=== PATIENT | female | born 1940 | race Caucasian/White ===

== ENCOUNTER 2019-08-22 15:23 | Emergency (ER) | payer MEDICARE ==
[~2019-08-22] VITALS: Ht 162.6 cm; Wt 83.9 kg
[~2019-08-22 15:23] MED LIST: ALBU90OI INH; ASPI325EC PO; BAYER CHEWABLE81 MG PO; Benadryl 50 mg50 MG PO; CEPH500 PO; CODACE30 PO; DOXY100 PO; EXTRA STRENGTH500 MG PO; GABA300 PO; HYDR1TAB94 PO; IBUP600 PO; MELO7.5 PO; METF500C PO; METPRE4DP PO; PRED20 PO; Pepcid20 MG PO; Pyridium200 MG PO; ROXICODONE5 MG PO; Ventolin Soln3 ML INH; Ventolin5 MG/1 ML INH; Zithromax250 MG PO
[2019-08-22] MEDS ORDERED: TRAM50 PO (15:48)
== END 2019-08-22 16:34 | disposition home or self-care (01) ==
LOC: ER 15:23
DX: M25.511 Pain in right shoulder (principal); J45.909 Unspecified asthma, uncomplicated; E11.9 Type 2 diabetes mellitus without complications; Z79.84 Long term (current) use of oral hypoglycemic drugs; Z79.51 Long term (current) use of inhaled steroids; Z79.82 Long term (current) use of aspirin; Z79.899 Other long term (current) drug therapy
CPT/HCPCS: 99283

== ENCOUNTER → 2020-01-26 | Outpatient (CLI) | payer MEDICARE ==
[~2020-01-26] MED LIST changes: +CEFPODOXIME PR200 MG PO; +ELIQUIS5 M3 PO; +FUROSEMIDE20 MG PO; +GABAPENTIN CAP 100; +GLIP2.5ER PO; +LISINOPRIL2.5 MG PO; +METOPROLOL TART25 MG PO; +Potassium Chlo20 ME1 PO; +TRAM50 PO; +Ventolin/Prove6.7 GM INH
== END | disposition home or self-care (01) ==
LOC: LAB SHORT 18:17 → LAB 18:17
DX: R39.9 Unspecified symptoms and signs involving the genitourinary system (principal)
CPT/HCPCS: 87077; 87086; 87186

== ENCOUNTER → 2020-05-12 | Outpatient (CLI) | payer MEDICARE | LOC: LAB 09:50 → LAB SHORT 09:50 | DX: R39.9 Unspecified symptoms and signs involving the genitourinary system (principal) | CPT/HCPCS: 87077; 87086; 87186 ==

== ENCOUNTER → 2020-08-24 | Outpatient (CLI) | payer MEDICARE | END | disposition home or self-care (01) | LOC: LAB SHORT 17:59 | DX: R30.9 Painful micturition, unspecified (principal) | CPT/HCPCS: 87077; 87086; 87186 ==

== ENCOUNTER → 2020-09-21 | Outpatient (CLI) | payer MEDICARE | LOC: LAB 13:10 → LAB SHORT 13:10 | DX: R39.9 Unspecified symptoms and signs involving the genitourinary system (principal) | CPT/HCPCS: 87077; 87086; 87186 ==

== ENCOUNTER → 2020-12-05 | Outpatient (CLI) | payer MEDICARE | END | disposition home or self-care (01) | LOC: LAB SHORT 14:40 → LAB 14:40 | DX: N39.0 Urinary tract infection, site not specified (principal) | CPT/HCPCS: 87077; 87086; 87186 ==

== ENCOUNTER 2023-12-31 20:13 | Inpatient (IN) | payer MEDICARE ==
[~2023-12-31] VITALS: Ht 162.6 cm; Wt 100.6 kg
[~2023-12-31 20:13] MED LIST changes: -GABAPENTIN CAP 100; +Neurontin 100100 MG PO; -Ventolin/Prove6.7 GM INH
[2023-12-31] MEDS ORDERED: Ipratropium/Albuterol SulF 2.5-0.5MG/3 ML Amp INH PRN (20:25)
[2023-12-31 20:40] LABS: BASOPHILS ABSOLUTE AUTO 0.03 K/mm3 (0.00-0.23); BASOPHILS PERCENT AUTO 0 % (0-2); EOSINOPHILS ABSOLUTE AUTO 0.03 K/mm3 (0.00-0.68); EOSINOPHILS PERCENT AUTO 0 % (0-6); Hematocrit 43.3 % (33.0-51.0); IMMATURE GRAN ABSOLUTE AUTO 0.09 K/mm3 (0.00-0.10); IMMATURE GRAN PERCENT AUTO 1 % (0-1); LYMPHOCYTES ABSOLUTE AUTO 2.53 K/mm3 (0.84-5.20); LYMPHOCYTES PERCENT AUTO 30 % (21-46); MONOCYTES ABSOLUTE AUTO 0.64 K/mm3 (0.16-1.47); MONOCYTES PERCENT AUTO 8 % (4-13); Mean Corpuscular HGB 29.1 pg (26.0-34.0); Mean Corpuscular Volume 97 fL (80-100); Mean Platelet Volume 8.8 fL (9.1-12.4); NEUTROPHILS ABSOLUTE AUTO 5.11 K/mm3 (1.96-9.15); NEUTROPHILS PERCENT AUTO 61 % (41-73); NRBC ABSOLUTE 0.02 K/mm3 (0.00-0.02); NRBC Auto 0.2 /100 WBC (0.0-0.2); Platelet Count 299 K/mm3 (150-400); RDW Coefficient Variation 13.6 % (11.7-14.2); RDW Standard Deviation 48.6 fL (35.1-46.3); Red Blood Cell Count 4.46 M/mm3 (3.80-5.20); White Blood Cell Count 8.43 K/mm3 (4.00-11.30)
[2023-12-31] MEDS ORDERED: CefTRIAXone Sodium 1,000 MG in NS 100 ML IV ONE (20:50)
[2023-12-31 20:59] LABS: Albumin, Blood 2.9 g/dL (3.4-5.0); Albumin/Globulin Ratio 0.7 (0.8-1.8); Bilirubin, Total 0.6 mg/dL (0.1-1.0); Calcium, Blood 9.1 mg/dL (8.5-10.1); Creatinine, Blood 0.69 mg/dL (0.40-1.00); Globulin, Blood 4.3 g/dL (2.2-4.0); Potassium, Blood 4.4 mmol/L (3.5-5.5); Total Protein, Blood 7.2 g/dL (6.4-8.2)
[2023-12-31 21:08] LABS: Influenza A, PCR NEGATIVE (NEGATIVE); Influenza B, PCR NEGATIVE (NEGATIVE); Resp Syncytial Virus, PCR NEGATIVE (NEGATIVE)
[2023-12-31] MEDS ORDERED: METF500 PO (21:16)
[2023-12-31 21:20] LABS: SARS-Cov-2 (COVID-19) PCR, MMC POSITIVE (NEGATIVE)
[2023-12-31] MEDS ORDERED: Vancomycin HCL 1,250 MG in NS 250 ML IV ONE (21:35)
[2023-12-31] MEDS ORDERED: Dexamethasone Sod Phos 10 MG/ML 1ML VIAL IV ONE (22:10)
[2023-12-31] MEDS ORDERED: Ondansetron HCl 2 MG / ML 2ML Vial IV PRN (22:25)
[2023-12-31] MEDS ORDERED: Ipratropium/Albuterol SulF 2.5-0.5MG/3 ML Amp INH SCH (22:30)
[2023-12-31] MEDS ORDERED: Remdesivir (EUA) 200 MG in NS 250 ML IV ONE (22:35)
[2023-12-31] MEDS ORDERED: Lactobacil 2-S.Thermo-Bifido 1 1 Cap PO SCH (23:00)
[2023-12-31] MEDS ORDERED: HydrALAZINE HCl 20 MG / ML 1ML Vial IV PRN (23:35)
[2023-12-31] MEDS ORDERED: Azithromycin 500 MG in NS 250 ML IV ONE (23:40)
[2024-01-01] MEDS ORDERED: Insulin Glargine-Yfgn 100 Unit/mL 3 ML SYR SC SCH
[2024-01-01] MEDS ORDERED: NS 250 ML IV PRN (00:25)
[2024-01-01 01:05] VITALS: BP 127/79
[2024-01-01] MEDS ORDERED: Acetaminophen 325 MG TABLET PO PRN (04:10)
--- NOTE | 2024-01-01 06:05 | NUR ---
Shift Summary Pt admitted to this unit from ED for acute respiratory failure related to covid. Pt is normally on RA at home, at the ED she her O2 sat was 82% on RA, she was placed on 6L NC to [facility] above 90%. While up here she had an episode where she was saying she coulden't breath. I sat her up at 45%, put her on 7L, monitored her O2 which never fell below 89, and called RT for a treatment. Her lungs were wheezy upon arrival which rhonchi sounds. After a nebulizer treatment pt stated she was feeling a bit better but had 10/10 pain in her legs. I called the hospitalist who ordered PRN Tylenol, after taking Tylenol pt was fast asleep 1 hour later. She is AOx4, 1 assist to BSC. She has urinary frequency and calls appropriatly when she needs to go. She is on contact precautions for Covid which she tested positive for in the ED.
[2024-01-01] MEDS ORDERED: Insulin Human Lispro 100 Units/ML 3ML Syringe SC SCH (07:30)
[2024-01-01] MEDS ORDERED: MetFORMIN HCl 500 mg PO SCH (08:00)
[2024-01-01 08:59] VITALS: BP 126/70
[2024-01-01] MEDS ORDERED: Enoxaparin 40 MG/0.4 ML SYR SC SCH (09:00)
[2024-01-01] MEDS ORDERED: dexAMETHasone 4 MG TAB PO SCH (09:00)
[2024-01-01] MEDS ORDERED: CefTRIAXone Sodium 1,000 MG in NS 100 ML IV SCH (09:00)
[2024-01-01 15:11] VITALS: BP 128/65
--- NOTE | 2024-01-01 18:06 | NUR ---
SHIFT SUMMARY PT A&OX4, VSS, ON 6L HIGH FLOW O2, AMB W/ 1P ASSIST TO THE BSC, TOLERATING SMALL AMOUNTS OF PO, VOIDING, AND DENIED PAIN. MEPILEX WAS APPLIED TO THE PT'S BUTTOCK PRESSURE ULCER AND THE BLE'S CONT TO PEEL AND WEEP. CALL LIGHT WITHIN REACH AND PT ABLE TO MAKE NEEDS KNOWN.
[2024-01-01 20:19] VITALS: BP 123/76
[2024-01-01] MEDS ORDERED: Remdesivir (EUA) 100 MG in NS 250 ML IV SCH (21:00)
[2024-01-01] MEDS ORDERED: Famotidine 20 MG Tab PO SCH (21:00)
[2024-01-02 02:21] VITALS: BP 120/64
[2024-01-02 04:41] LABS: Base Excess Venous 7.2 mmol/L; Bicarbonate Venous 29.2 mmol/L (24.0-30.0); PCO2 Venous 61.8 mmHg (38-42); pH Blood Venous 7.34 (7.34-7.37)
[2024-01-02 05:10] LABS: BASOPHILS ABSOLUTE AUTO 0.02 K/mm3 (0.00-0.23); BASOPHILS PERCENT AUTO 0 % (0-2); EOSINOPHILS PERCENT AUTO 0 % (0-6); Hematocrit 39.8 % (33.0-51.0); Hemoglobin 11.9 g/dL (11.5-16.0); IMMATURE GRAN PERCENT AUTO 1 % (0-1); LYMPHOCYTES ABSOLUTE AUTO 2.82 K/mm3 (0.84-5.20); LYMPHOCYTES PERCENT AUTO 32 % (21-46); MONOCYTES ABSOLUTE AUTO 0.69 K/mm3 (0.16-1.47); MONOCYTES PERCENT AUTO 8 % (4-13); Mean Corpuscular HGB Conc 29.9 g/dL (31.5-36.5); Mean Corpuscular Volume 97 fL (80-100); Mean Platelet Volume 9.2 fL (9.1-12.4); NEUTROPHILS ABSOLUTE AUTO 5.29 K/mm3 (1.96-9.15); NEUTROPHILS PERCENT AUTO 59 % (41-73); Platelet Count 335 K/mm3 (150-400); RDW Coefficient Variation 13.4 % (11.7-14.2); RDW Standard Deviation 47.3 fL (35.1-46.3); Red Blood Cell Count 4.11 M/mm3 (3.80-5.20); White Blood Cell Count 8.92 K/mm3 (4.00-11.30)
[2024-01-02 05:37] LABS: Bun/Creatinine Ratio 21.6 (12.0-20.0); Calcium, Blood 8.7 mg/dL (8.5-10.1); Creatinine, Blood 0.6 mg/dL (0.40-1.00); Potassium, Blood 4.5 mmol/L (3.5-5.5)
--- NOTE | 2024-01-02 06:30 | NUR ---
SHIFT SUMMARY PATIENT WAS POLITE AND SOCIAL H STAFF. ABLE TO MAKE NEEDS KNOWN, PLACED IV BAND ON ARM TO KEEP FROM OCCULTION. PATIENT APPEARED TO SLEEP THROUGH THE NIGHT. BED ON LOW POSITON, RAILS TIMES 2, CALL LIGHT WITHIN REACH.
[2024-01-02 07:12] VITALS: BP 123/65
[2024-01-02] MEDS ORDERED: Azithromycin 250 MG Tab PO SCH (09:00)
[2024-01-02 15:02] VITALS: BP 128/76
--- NOTE | 2024-01-02 17:49 | NUR ---
SHIFT SUMMARY PT ON 5L HIGH FLOW O2 AND SAT UP IN THE CHAIR FOR APPROX 4 HOURS. PT REPORTED THAT SHE FELT BETTER WHILE SITTING UP IN THE CHAIR. NO OTHER ACUTE CHANGES THIS SHIFT. CALL LIGHT WITHIN REACH AND PT ABLE TO MAKE NEEDS KNOWN.
[2024-01-02 19:40] VITALS: BP 129/109
[2024-01-03 02:57] VITALS: BP 129/69
[2024-01-03 04:54] LABS: Bicarbonate Venous 30.7 mmol/L (24.0-30.0); PCO2 Venous 48.2 mmHg (38-42); pH Blood Venous 7.43 (7.34-7.37)
[2024-01-03 05:36] LABS: Free Thyroxine 1.32 ng/dL (0.70-1.60)
[2024-01-03 05:38] LABS: Bun/Creatinine Ratio 22.3 (12.0-20.0); Calcium, Blood 8.9 mg/dL (8.5-10.1); Creatinine, Blood 0.63 mg/dL (0.40-1.00); Potassium, Blood 4.3 mmol/L (3.5-5.5); Thyroid Stimulating Hormone 1.68 uIU/mL (0.360-4.800)
[2024-01-03 07:26] VITALS: BP 175/73
[2024-01-03 09:58] VITALS: BP 115/60
[2024-01-03] MEDS ORDERED: Ipratropium/Albuterol SulF 2.5-0.5MG/3 ML Amp INH PRN (12:40)
[2024-01-03 15:31] VITALS: BP 131/78
--- NOTE | 2024-01-03 17:39 | NUR ---
SHIFT SUMMARY PT ON 4L HIGH FLOW O2 AND SAT UP IN THE CHAIR FOR MOST OF THE SHIFT. NO OTHER ACUTE CHANGES. CALL LIGHT WITHIN REACH AND PT ABLE TO MAKE NEEDS KNOWN.
[2024-01-03 20:23] VITALS: BP 139/97
[2024-01-04 02:15] VITALS: BP 129/69
--- NOTE | 2024-01-04 04:05 | NUR ---
SHIFT SUMMARY PATIENT HAD NO ACUTE CHANGES. AXOX 4 AND SBA TO BSC. PIV INTACT. IV ABX INFUSED. CBG 175. ON 4L O2 HF AND RA BASELINE. DENIES CHEST PAIN, SOB, AND N/V. VSS/AFEBRILE. WENT FROM CHAIR TO BED AND BACK INTO CHAIR, REPORTS EASIER BREATHING. ABLE TO MAKE NEEDS KNOW. ENHANCED PRECAUTIONS. CALL LIGHT IN REACH. BED IN LOWEST POSITION. WILL CONTINUE TO MONITOR UNTIL DAY SHIFT NURSE ASSUMES CARE.
[2024-01-04 08:31] VITALS: BP 127/65
[2024-01-04 15:03] VITALS: BP 121/74
--- NOTE | 2024-01-04 16:51 | NUR ---
REPORT RECEIVED VERIDFIED, A/O X 3 PT IN GRUMPY MOOD AND DOES NOT WANT TO BE BOTHERED. PT HAS BEEN ASSISTED TO BSC SEVERAL TIMES AND HAS ALWAYS CALLED APPROPRIATLY, PT HAS BEEN ABLE TO MAKE NEEDS KNOWN, NO S/S OF DISTRESS.
[2024-01-04 20:22] VITALS: BP 132/82
--- NOTE | 2024-01-05 04:01 | NUR ---
SHIFT SUMMARY PATIENT HAD NO ACUTE CHANGES. AXOX 4 AND SBA TO BSC. ON 4L O2 NC AND RA BASELINE. DENIES CHEST PAIN, SOB, AND N/V. VSS/AFEBRILE. UP IN CHAIR AT THIS TIME. PIV INTACT. IV ABX INFUSED. CBG 146. CALL LIGHT IN REACH. BED IN LOWEST POSITION. WILL CONTINUE TO MONITOR UNTIL DAY SHIFT NURSE ASSUMES CARE.
[2024-01-05 04:04] VITALS: BP 131/66
[2024-01-05 07:48] VITALS: BP 126/68
[2024-01-05] MEDS ORDERED: Polyethylene Glycol 3350 17 gm PO PRN (11:15)
[2024-01-05] MEDS ORDERED: Docusate Sodium/Senna 1 Tab PO PRN (11:15)
[2024-01-05] MEDS ORDERED: PRED20 PO (14:13)
[2024-01-05 15:23] VITALS: BP 134/68
--- NOTE | 2024-01-05 17:58 | NUR ---
DISCHARGE PT DISCHARGED AFTER PT & NEICE WERE EDUCATED ON NEW MEDICATION, NEW HOME O2, AND FOLLOW UP APPOINTMENT NEEDED. BOTH STATED THEY HAVE NO FURTHER NEED FOR EDUCATION AT [facility] EOF DC. PT IV REMOVED & INTACT. PT HAD MEDIUM BM PRIOR TO DC. RT COMPLETED HOME O2 EVAL. 3L O2 NEEDED AT REST, 6L WITH AMBULATION. PT WHEELED OUT BY AIDE & DRIVEN HOME BY NESALLIE.
== END 2024-01-05 18:00 | disposition home or self-care (01) | DRG 177 ==
LOC: ER 20:13 → MEDS 22:24
PROVIDERS: Emergency Medicine; Internal Medicine; ADMIT Internal Medicine
PROC: XW033E5 Introduction of Remdesivir Anti-infective into Peripheral Vein, Percutaneous Approach, New Technology Group 5 (ICD-10-PCS; principal; 2023-12-31)
PROC: 3E0DX3Z Introduction of Anti-inflammatory into Mouth and Pharynx, External Approach (ICD-10-PCS; 2023-12-31)
DX: U07.1 COVID-19 (principal); J12.82 Pneumonia due to coronavirus disease 2019; J96.01 Acute respiratory failure with hypoxia; J96.02 Acute respiratory failure with hypercapnia; E87.20 Acidosis, unspecified; Z66 Do not resuscitate; E11.9 Type 2 diabetes mellitus without complications; M19.90 Unspecified osteoarthritis, unspecified site; I87.8 Other specified disorders of veins; J45.909 Unspecified asthma, uncomplicated; Z79.01 Long term (current) use of anticoagulants; Z79.899 Other long term (current) drug therapy; Z79.51 Long term (current) use of inhaled steroids; Z98.890 Other specified postprocedural states; Z87.891 Personal history of nicotine dependence; Z90.710 Acquired absence of both cervix and uterus; Z90.89 Acquired absence of other organs; Z79.84 Long term (current) use of oral hypoglycemic drugs
CPT/HCPCS: 0241U; 36415; 71045; 73600; 73620; 80048; 80053; 82803; 82947; 83605; 83880; 84145; 84439; 84443; 84484; 85025; 85379; 87040; 93005; 93010; 94640; 94664; 94760; 94761; 94762; 96365; 99285-25; A9270; J0248; J0456; J0696; J1100; J1650; J1815; J3370; J7050

== ENCOUNTER 2024-01-20 05:00 | Inpatient (IN) | payer OTHER, MEDICARE ==
[~2024-01-20] VITALS: Ht 157.5 cm; Wt 103.5 kg
[2024-01-20] VITALS (52 sets, daily range): BP systolic 73–120; BP diastolic 38–87
[~2024-01-20 05:00] MED LIST changes: +METF500 PO
[2024-01-20] MEDS ORDERED: NS 1,000 ML IV SCH ×4 (05:15→12:00)
[2024-01-20] MEDS ORDERED: Albuterol 2.5 MG/3 ML VIAL INH SCH ×2 (05:20→06:20)
[2024-01-20] MEDS ORDERED: Ipratropium/Albuterol SulF 2.5-0.5MG/3 ML Amp INH ONE ×2 (05:20→06:20)
[2024-01-20] MEDS ORDERED: Azithromycin 500 MG in NS 250 ML IV ONE (06:20)
[2024-01-20] MEDS ORDERED: MethylPREDNISolone Sod Succ 125 MG Vial IV ONE (06:20)
[2024-01-20] MEDS ORDERED: Cefepime HCl 2,000 MG in NS 100 ML IV ONE (06:20)
[2024-01-20 06:22] LABS: Hematocrit 42.2 % (33.0-51.0); Mean Corpuscular HGB 28.9 pg (26.0-34.0); Mean Corpuscular HGB Conc 30.8 g/dL (31.5-36.5); Mean Corpuscular Volume 94 fL (80-100); Mean Platelet Volume 10.2 fL (9.1-12.4); Platelet Count 198 K/mm3 (150-400); RDW Coefficient Variation 13.9 % (11.7-14.2); RDW Standard Deviation 47.6 fL (35.1-46.3); White Blood Cell Count 8.16 K/mm3 (4.00-11.30)
[2024-01-20] MEDS ORDERED: NS 500 ML IV SCH (06:25)
[2024-01-20 06:50] LABS: Albumin, Blood 2.9 g/dL (3.4-5.0); Albumin/Globulin Ratio 0.9 (0.8-1.8); Bilirubin, Total 1.3 mg/dL (0.1-1.0); Bun/Creatinine Ratio 20.3 (12.0-20.0); Calcium, Blood 8.9 mg/dL (8.5-10.1); Creatinine, Blood 1.58 mg/dL (0.40-1.00); Globulin, Blood 3.4 g/dL (2.2-4.0); Potassium, Blood 4.7 mmol/L (3.5-5.5); Total Protein, Blood 6.3 g/dL (6.4-8.2)
[2024-01-20] MEDS ORDERED: Vancomycin HCL 1,500 MG in NS 250 ML IV ONE (06:50)
[2024-01-20 06:51] LABS: BAND PERCENT MAN 24 % (0-8); BASOPHILS PERCENT MAN 0 % (0-2); EOSINOPHILS PERCENT MAN 0 % (0-6); LYMPHOCYTES ABSOLUTE MAN 0.81 K/mm3 (0.84-5.20); LYMPHOCYTES PERCENT MAN 10 % (21-46); METAMYELOCYTE ABSOLUTE MAN 0.32 K/mm3 (0.00-0.00); METAMYELOCYTE PERCENT MAN 4 % (0-0); MONOCYTES PERCENT MAN 5 % (4-13); SEG NEUTROPHILS PERCENT MAN 57 % (41-73); TOTAL CELLS COUNTED 100
[2024-01-20 06:53] LABS: Base Excess Venous 2.8 mmol/L; Bicarbonate Venous 24.1 mmol/L (24.0-30.0); PCO2 Venous 76.2 mmHg (38-42); pH Blood Venous 7.21 (7.34-7.37)
[2024-01-20 07:12] LABS: Influenza A, PCR NEGATIVE (NEGATIVE); Influenza B, PCR NEGATIVE (NEGATIVE); Resp Syncytial Virus, PCR NEGATIVE (NEGATIVE); SARS-Cov-2 (COVID-19) PCR, MMC NEGATIVE (NEGATIVE)
[2024-01-20] MEDS ORDERED: Insulin Regular 100 Unit/ML 1ML Dose IV STA (07:41)
[2024-01-20] MEDS ORDERED: FLU VACC TS2024-25(6MOS UP)/PF 45 MCG/0.5 ML SYRINGE IM ONE (07:45)
[2024-01-20] MEDS ORDERED: Magnesium Hydroxide Conc 10 ML UDC PO PRN (07:50)
[2024-01-20] MEDS ORDERED: Insulin Glargine-Yfgn 100 Unit/mL 3 ML SYR SC SCH ×2 (08:00→21:00)
[2024-01-20 08:09] LABS: pH Blood Venous 7.24 (7.34-7.37)
[2024-01-20 08:10] LABS: Base Excess Venous -3.9 mmol/L; Bicarbonate Venous 20.7 mmol/L (24.0-30.0)
[2024-01-20 08:11] LABS: PO2 Venous 125 mmHg (38-42)
[2024-01-20 08:50] LABS: Source, Urine Straight Cath
[2024-01-20 09:00] LABS: Bilirubin, Urine Neg (Neg); Blood, Urine Neg (Neg); Glucose Qualitative, Urine 4+ (Neg); Ketones, Urine Neg (Neg); Leukocyte Esterase, Urine Neg (Neg); Nitrite, Urine Neg (Neg); Protein, Urine 1+ (Neg); Urobilinogen, Urine 1+ (Normal)
[2024-01-20] MEDS ORDERED: Docusate Sodium 100 MG Cap PO SCH (09:00)
[2024-01-20 09:11] LABS: Appearance, Urine Clear (Clear); Color, Urine Yellow (P-Yellow)
[2024-01-20] MEDS ORDERED: Acetaminophen 650 MG Supp PR PRN (10:05)
[2024-01-20] MEDS ORDERED: Insulin Regular 100 UNIT/ML 10ML Vial IV STA (10:21)
[2024-01-20] MEDS ORDERED: Insulin Human Lispro 100 Units/ML 3ML Syringe SC SCH ×2 (12:00)
[2024-01-20] MEDS ORDERED: CefTRIAXone Sodium 1,000 MG in NS 100 ML IV SCH (12:00)
[2024-01-20] MEDS ORDERED: Sodium Bicarb 8.4% 1 MEQ/ML 50 ML Vial IV STA (12:15)
[2024-01-20 12:43] LABS: pH Blood Arterial 7.21 (7.35-7.45)
[2024-01-20] MEDS ORDERED: Enoxaparin 30 MG/0.3 ML SYR SC SCH (14:00)
[2024-01-20] MEDS ORDERED: Ipratropium/Albuterol SulF 2.5-0.5MG/3 ML Amp INH SCH (15:10)
--- NOTE | 2024-01-20 15:36 | NUR ---
DECISION MAKER PT DOES NOT HAVE AN ADVANCE DIRECTIVE OR POLST, CONFIRMED WITH [facility] AND PT'S PCP. PT WAS ADMITTED TO [facility] ON 12/31/23. 'S H&P ON 12/31/23 STATES PT ELECTED TO BE A DNR AND LISTED HER NIECE NEETA HER HEALTH CARE PROXY. THIS PC RN LEFT A MSG FOR NEETA TO CALL BACK RE: GO.
--- NOTE | 2024-01-20 16:09 | NUR ---
CARE ASSUMPTION PT ARRIVED TO ICU FROM ED VIA ED STRETCHER AT APPROX 0900. PT WAS SLID BY 3 STAFF FROM ED STRETCHER TO ICU BED. PT ALERT, UNABLE TO STATE NAME/. PT STATES, "SIT ME UP!" REPEATEDLY WHEN LAYED DOWN. PT UNABLE TO FOLLOW COMMANDS. FEBRILE, TEMP LOMBARDI READ 102.2. SP02>90% ON BIPAP, 12/8, 35% FI02. BREATHING SHALLOW. TELEMETRY SHOWS SINUS TACH, HR 110'S, BRIEF RUN AT 150'S. PT W/ LOMBARDI CATHETER DRAINING SUNDAR URINE TO GRAVITY, PLACED IN ER. LIQUID INCONTINENT SMALL STOOL UPON ARRIVAL. BED BATH GIVEN. PRESSURE ULCER NOTED ON BOTTOM, SEE PICTURES IN CHART. MEPLEX PLACED. CALL PLACED TO MD BERGER. MD BERGER W/ ORDERS FOR TYLENOL SUPPOSITORY. GIVEN. TEMP CURRENTLY 101.2. CBG ELEVATED, SEE RESULTS. 10U ONE TIME HUMULIN R GIVEN PER EMAR. CHANGED TO HIGH SLIDING SCALE PER MD. CRITICAL LAB NOTIFIED, LACTIC ACID 3.8. CALL PLACED TO MD BERGER. MD BERGER W/ ORDERS FOR 1L NS BOLUS. EDWIN RN IN ROOM TO PLACE POWERGLIDE. PT RESPOSIVENESS DECREASED. ABLE TO AWAKE W/ LOUD VOICE/STERNAL RUB BUT THEN GOES BACK TO SLEEP. BIPAP SETTINGS REQUIRED INCREASE TO 15/8, 85% BY RT. MD BERGER AND MD FARIAS IN ROOM TO ASSESS. MD FARIAS W/ US. SERENA KWOK TO ROOM. UPDATED BY MD FARIAS. SERENA KWOK STATES WANTS PT TO REMAIN DNR PER PT'S WISHES BUT OK WITH PRESSERS IF NEEDED AND PICC IF NEEDED. SERENA SANTACRUZ UPDATED WELL VIA PHONE. PALLIATIVE CARE CONSULT PLACED. [phone] [phone]
--- NOTE | 2024-01-20 17:38 | NUR ---
update PT MORE ALERT. PT STATES, "TAKE THIS THING OFF ME" REGARDING BIPAP. MD FARIAS IN ROOM. MD FARIAS W/ ORDERS FOR VBG THEN REMOVE BIPAP. VBG SENT TO LAB. PT PLACED ON 10L HIFLO SATTING >90%. PT C/O OF RLL PAIN. PT C/O OF THIRST. ORAL CARE DONE. LET PT KNOW SUNDAR STOPPED BY AND I SPOKE WITH NEETA ON PHONE. ASKED PT IF SHE WOULD LIKE ME TO UPDATE EITHER ONE THAT SHE IS AWAKE. PT DECLINED.
[2024-01-20 17:49] LABS: Base Excess Venous -11.9 mmol/L; Bicarbonate Venous 15.7 mmol/L (24.0-30.0); PCO2 Venous 34.9 mmHg (38-42); pH Blood Venous 7.25 (7.34-7.37)
[2024-01-20] MEDS ORDERED: Apixaban 5 MG Tab PO SCH (21:00)
[2024-01-20] MEDS ORDERED: Miconazole Nitrate 2% 85 GM PWD TOP SCH (21:00)
[2024-01-20] MEDS ORDERED: Lactobacil 2-S.Thermo-Bifido 1 1 Cap PO SCH (21:00)
--- NOTE | 2024-01-20 21:42 | NUR ---
ASSUMPTION OF CARE: THIS RN ASSUMED CARE OF PT AT APPROX 1915. PT ALERT, ORIENTED X4. IRRITATED AT TIMES T/O ASSESSMENT BUT REMAINS COOPERATIVE. FREQUENTLY YELLS "SIT ME UP" & "I CAN'T BREATHE" W/ SPO2 >90%, C/O PAIN TO RIGHT SIDE W/ DEEP BREATHS. CALL TO MD HUTTON REGARDING PAIN. MD TO PLACE ORDERS. PT IS ABLE TO COMMUNICATE NEEDS W/ STAFF. R PUPIL 4MM & OVAL IN SHAPE COMPARED TO L PUPIL 2MM & ROUND IN SHAPE. BILAT PUPILS SLUGGISH BUT REACTIVE. LECTURER IN COMPUTER SCIENCE STRENGTH EQUAL BILATERALLY. PT ABLE TO MOVE ALL EXTREMITIES. NO OTHER UNILATERAL DEFICITS OBSERVED. HR 110'S, SINUS TACH ON MONITOR. SBP 90-110'S, MAP >65. SPO2 90-98% ON 10L VIA HFNC. CORE TEMP HAS DECREASED TO 99.5 AT THIS TIME. LOMBARDI CATH IN PLACE, PATENT & DRAINING SUNDAR URINE TO GRAVITY. Q2HR REPOSITIONING. NO OTHER NEEDS AT THIS TIME.
[2024-01-20] MEDS ORDERED: Ketorolac Tromethamine 30mg Vial IV ONE (23:00)
[2024-01-20] MEDS ORDERED: Acetaminophen 325 MG TABLET PO PRN (23:36)
[2024-01-20] MEDS ORDERED: Midodrine 5 MG Tab PO SCH (23:40)
[2024-01-21] VITALS (63 sets, daily range): BP systolic 72–141; BP diastolic 45–127
--- NOTE | 2024-01-21 00:15 | NUR ---
PHYSICIAN CONTACT: HYPOTENSION NOTED W/ MAP <65 AT APPROX 2315 WHILE PT RESTING IN BED. MARGARET RN PLACED CALL TO MD HUTTON. W/ ORDER TO START MIDODRINE. ADMINISTERED PER EMAR.
--- NOTE | 2024-01-21 01:29 | NUR ---
UPDATE: CALL PLACED TO MD SU REGARDING CONTINUED HYPOTENSION. ORDERS RECEIVED TO START LEVOPHED AT THIS TIME. MAP HAS INCREASED TO >65 PRIOR TO STARTING LEVO, ON STANDBY IF MAP DECREASES. ALSO NOTIFIED THAT BLOOD CULTURES ARE POSITIVE FOR GRAM+ COCCI IN CLUSTERS. NO NEW ORDERS AT THIS TIME.
[2024-01-21 04:40] LABS: Hematocrit 41.5 % (33.0-51.0); Hemoglobin 12.6 g/dL (11.5-16.0); Mean Corpuscular HGB 28.8 pg (26.0-34.0); Mean Corpuscular HGB Conc 30.4 g/dL (31.5-36.5); Mean Corpuscular Volume 95 fL (80-100); Mean Platelet Volume 10.2 fL (9.1-12.4); Platelet Count 165 K/mm3 (150-400); RDW Coefficient Variation 13.9 % (11.7-14.2); RDW Standard Deviation 48.9 fL (35.1-46.3); Red Blood Cell Count 4.38 M/mm3 (3.80-5.20); White Blood Cell Count 5.46 K/mm3 (4.00-11.30)
[2024-01-21 04:52] LABS: Bun/Creatinine Ratio 32.1 (12.0-20.0); Calcium, Blood 7.9 mg/dL (8.5-10.1); Creatinine, Blood 1.09 mg/dL (0.40-1.00); Potassium, Blood 4.9 mmol/L (3.5-5.5)
[2024-01-21 05:03] LABS: BAND PERCENT MAN 42 % (0-8); BASOPHILS PERCENT MAN 0 % (0-2); EOSINOPHILS PERCENT MAN 0 % (0-6); LYMPHOCYTES % ATYPICAL MANUAL 1 % (0-0); LYMPHOCYTES ABSOLUTE MAN 0.81 K/mm3 (0.84-5.20); LYMPHOCYTES PERCENT MAN 14 % (21-46); METAMYELOCYTE ABSOLUTE MAN 0.21 K/mm3 (0.00-0.00); METAMYELOCYTE PERCENT MAN 4 % (0-0); MONOCYTES ABSOLUTE MAN 0.21 K/mm3 (0.16-1.47); MONOCYTES PERCENT MAN 4 % (4-13); MYELOCYTE PERCENT MAN 2 % (0-0); NEUTROPHILS ABSOLUTE MAN 4.09 K/mm3 (1.96-9.15); SEG NEUTROPHILS PERCENT MAN 33 % (41-73); TOTAL CELLS COUNTED 100
[2024-01-21] MEDS ORDERED: Metoprolol Tartrate 5 ML IV ONE (05:39)
[2024-01-21] MEDS ORDERED: Metoprolol Tartrate 1 MG/ML 5 ML VIAL IV ONE (05:45)
[2024-01-21] MEDS ORDERED: Pantoprazole Sodium 40 MG Injection IV SCH (06:00)
[2024-01-21] MEDS ORDERED: Digoxin 0.25 MG/ML 2ML Amp IV ONE ×2 (06:15→12:30)
--- NOTE | 2024-01-21 06:33 | NUR ---
END OF SHIFT NOTE: PT HAS REMAINED A/OX4, NEURO UNCHANGED FROM PREVIOUS ASSESSMENTS. PUPILS REMAIN UNEQUAL, PT DENIES PREVIOUS SURGERY OR TRAUMA. ABLE TO COMMUNICATE NEEDS, YELLS OUT FREQUENTLY FOR ASSISTANCE. HR FOR MAJORITY OF NOC 100-110'S, SINUS TACH ON MONITOR. AT APPROX 0535, HR INCREASED TO 150-180'S, MONITOR SHOWING AFIB. EKG COMPLETED. CALL TO MD SU. ORDER RECEIVED FOR 1X LOPRESSOR PUSH. HR 130-150'S FOLLOWING LOPRESSOR PUSH. MD NOTIFIED, ORDER TO START DIGOXIN; SEE EMAR. SBP 70-90'S, MAP STABLE. LEVOPHED REMAINS OFF. 12L O2 VIA HFNC TO MAINTAIN SPO2 >90%. PT REFUSED BIPAP OVERNIGHT. AFEBRILE. TEMP LOMBARDI REMAINS IN PLACE, VERY MINIMAL URINE OUTPUT OVERNIGHT. NO BM'S. Q2HR REPOSITIONING. PT TOLERATING PO INTAKE THIS AM. NO OTHER NEEDS AT THIS TIME. WILL REPORT TO ONCOMING RN.
[2024-01-21] MEDS ORDERED: Metoprolol Tartrate 1 MG/ML 5 ML VIAL IV STA (08:14)
[2024-01-21] MEDS ORDERED: NS 500 ML IV ONE (08:25)
[2024-01-21] MEDS ORDERED: NS 1,000 ML IV SCH (08:30)
[2024-01-21] MEDS ORDERED: Apixaban 5 MG Tab PO SCH (09:00)
[2024-01-21] MEDS ORDERED: Vancomycin HCL 1,750 MG in NS 500 ML IV SCH (09:00)
[2024-01-21] MEDS ORDERED: Metoprolol Tartrate 1 MG/ML 5 ML VIAL IV PRN (09:00)
[2024-01-21] MEDS ORDERED: Azithromycin 250 MG Tab PO SCH (09:00)
[2024-01-21] MEDS ORDERED: Metoprolol Tartrate 25 MG Tab PO SCH (09:00)
[2024-01-21] MEDS ORDERED: Enoxaparin 40 MG/0.4 ML SYR SC SCH (09:00)
[2024-01-21] MEDS ORDERED: Midodrine 5 MG Tab PO SCH (13:00)
[2024-01-21] MEDS ORDERED: Furosemide 10 MG / ML 2ML Vial IV ONE (14:45)
[2024-01-21] MEDS ORDERED: Acetaminophen 500 MG Tab PO PRN (16:25)
[2024-01-21] MEDS ORDERED: Ketorolac Tromethamine 15mg Vial IV ONE (16:25)
--- NOTE | 2024-01-21 18:27 | NUR ---
Summary. Pt rested in bed this shift, alert and oriented but lethargic. Attempted to use Bipap on pt without success, pt tolerated for 10-15 minutes before removing and refusing the mask. On high flow NC still, see RT charting. No acute events this shift, Amiodarone GTT started for rate control, pt converted back to sinus rhythm late this afternoon. See chart for further details.
--- NOTE | 2024-01-21 20:00 | NUR ---
ASSUMED CARE OF PT AT 1900. REPORT RECEIVED AT BEDSIDE. PT PRESENTS IN BED. ANXIOUS IN AFFECT. PT IN HIGH FOWLERS POSITION. PT HAS HIGH FLOW NASAL CANNULA ON AT 15 L/M. PT'S SATURATIONS LOW 90 PERCENTS. WILL REVIEW CHART AND PLAN OF CARE FOR THIS PT.
--- NOTE | 2024-01-21 23:00 | NUR ---
PT STARTED ON PRECEDEX AT 0.2 MCG'S/KG/HOUR. HAD CALLED DR FARIAS WHEREAS ORDER RECEIVED FOR PRECEDEX DRIP TO HELP PT WITH HER ANXIOUSNESS. PT HAS BEEN YELLING OUT "I CAN'T BREATHE!" RESPIRATORY HAS PLACED PT TO AIRVO AT 50 L/M FLOW WITH FIO2 80 PERCENT. THIS HAS BEEN KEEPING PT FROM 88-94 PERCENT. PT HAS BEEN ABLE TO SELF CLEAR SECRETIONS THAT SHE HAS EXPECTORATED BY USING YANKEUOR. PT ABLE TO TAKE SIPS OF WATER WITHOUT COUGH. BLOOD PRESSURES REVEAL LOW ALTHOUGH PT HAS HER ARM UP ON A PILLOW RESULTING IN LOWER READINGS. WILL CONTINUE TO MONITOR.
--- NOTE | 2024-01-21 23:49 | NUR ---
LOWER BLOOD PRESSURES REFLECTIVE TO PATIENTS POSITION. WILL CLOSELY MONITOR.
[2024-01-22] VITALS (30 sets, daily range): BP systolic 77–108; BP diastolic 46–79
--- NOTE | 2024-01-22 02:03 | NUR ---
PT'S ANXIOUSNESS NECCESITATED INCREASING PRECEDEX DRIP TO 0.3MCGS/KG/HOUR DID START LEVOPHED AT 2 MCG'S/MIN TO SUPPORT BLOOD PRESSURES. WILL CONTINUE TO MONITOR.
[2024-01-22 04:57] LABS: Bun/Creatinine Ratio 32.9 (12.0-20.0); Calcium, Blood 7.8 mg/dL (8.5-10.1); Creatinine, Blood 1.46 mg/dL (0.40-1.00); Potassium, Blood 4.9 mmol/L (3.5-5.5)
--- NOTE | 2024-01-22 05:59 | NUR ---
PT CONTINUES WITH PRECEDEX AT 0.4 MCG'S/KG/HOUR. LEVOPHED AT 3 MCG'S/MIN. AMIODARONE CONTINUES AT 0.5MG PER HOUR. PT HAS BEEN ANXIOUS OFF AND ON THROUGHOUT THE NIGHT. YELLS OUT FREQUENTLY BUT HAS BEEN IMPROVED WITH THE PRECEDEX DRIP. PT ON AIRVO WITH FLOW AT 50 L/M AND FIO2 85 PERCENT. PT MAINTAINS SATURATIONS 88-94 PERCENT WITH THIS. PT TENDS TO MOUTH BREATHE WHICH DECREASES HER SATURATIONS. PT CALLS OUT FOR DRINKS OF WATER WHEREAS CUP WITHIN EASY REACH. PT DOES NOT WANT TO GET AHOLD OF THE CUP FOR HERSELF. ASSISTED NECESSARY. PT STATES, "I CAN'T DO THIS ANYMORE!" AND "JUST LET ME GO!" PT HAS BEEN AGITATED AT TIMES. IS NOT HAPPY WITH BEING TURNED IN BED. EXPLAINED TO PT WHY REPOSITIONING IS SO IMPORTANT TO PROTECT HER SKIN INTEGRITY. PT HAS BEEN ABLE TO SELF CLEAR EXPECTORATED SECRETIONS INDEPENDENTLY. WILL CONTINUE TO MONITOR PT, AND WILL REPORT OFF TO ONCOMING RN.
--- NOTE | 2024-01-22 06:34 | NUR ---
WHEN ADMINISTERING AM MEDS, PT STATES "JUST LET ME GO!" "I AM READY TO " WHEN QUESTIONING PT ABOUT INTUBATION, PT STATES THAT SHE KNOWS WHAT INTUBATION IS, AND "I DON'T WANT THAT". THIS INFORMATION PASSED TO UNIT COORDINATORY TO FACILITATE A FAMILY DISCUSSION WITH PT TO DETERMINE IF CODE STATUS IS TO CHANGE.
[2024-01-22] MEDS ORDERED: LORazepam 1 MG Tab PO PRN (08:40)
[2024-01-22] MEDS ORDERED: Atropine Sulfate 1% Opth Soln 2ML BTL SL PRN (08:40)
[2024-01-22] MEDS ORDERED: Morphine Sulfate 20 MG/1ML 1 ML Oral Syringe SL PRN (08:40)
[2024-01-22] MEDS ORDERED: Scopolamine Hydrobromide Patch TOP PRN (08:40)
[2024-01-22] MEDS ORDERED: Vancomycin HCL 1,000 MG in NS 250 ML IV SCH (09:00)
[2024-01-22] MEDS ORDERED: Vancomycin HCL 1,250 MG in NS 250 ML IV SCH (09:00)
[2024-01-22] MEDS ORDERED: Ondansetron HCl 2 MG / ML 2ML Vial IV PRN (09:15)
[2024-01-22] MEDS ORDERED: LORazepam 2 MG/ML 1ML Injection IV PRN (09:15)
[2024-01-22] MEDS ORDERED: Acetaminophen 650 MG Supp PR PRN (09:15)
[2024-01-22] MEDS ORDERED: Morphine Sulfate 10 MG/ML 1MLSYR IV PRN (09:15)
--- NOTE | 2024-01-22 10:37 | NUR ---
Summary of events. Assumed care at approximately 0700. Upon entering room, pt immediately requested family to be contacted and expressed desire to change plan of care. Pt stated she was tired of "all this" and wanted to discontinue care. Family contacted, physician notified and palliative care notified. Pt placed on comfort care at 0921. Family present at bedside for all discussions with physician and palliative care prior to comfort care order. Pt resting comfortably at this time.
--- NOTE | 2024-01-22 15:41 | NUR ---
MET WITH PT, SERENA KWOK, AND THIS MORNING TO DISCUSS GOALS OF CARE. PT IS A/O X4. ABLE TO MAKE HER WANTS AND NEEDS KNOWN. LILLY DOES NOT WANT TO CONTINUE WITH ADVANCED AIRWAY INTERVENTIONS. SHE EXPRESSED SHE WANTS TO BE COMFORTABLE. UPON CLARIFICATION, PT ELECTED TO START ON COMFORT CARE. SERENA KWOK IS RESPECTFUL OF PT'S WISHES AND CALLING FAMILY INSTRUCTED BY LILLY. PROVIDER PLACED COMFORT CARE ORDERS. ADDITIONAL ORDERS RCV'D FROM PROVIDER AND ENTERED BY THIS PC RN. PRIMARY RN UPDATED.
--- NOTE | 2024-01-22 18:10 | NUR ---
Summary. Pt continues on comfort care, resting quietly and apparently at ease. PRN comfort care measures and medication given as needed throughout shift. Family at bedside for entire shift, comfort care cart ordered. Pt turned and cared for according to her wishes and wishes of family.
--- NOTE | 2024-01-22 20:00 | NUR ---
ASSUMED CARE OF PT AT 1900. REPORT RECEIVED AT BEDSIDE. PT PRESENTS IN BED. SEMICOMATOSE. FAMILY AT BEDSIDE. WILL CONTINUE WITH COMFORT CARE MEASURES. TEACHING DONE WITH FAMILY ON COMFORT CARE. ALSO MADE AWARE THAT POTENTIALLY PT COULD GET MOVED TO MEDICAL FLOOR IF ICU BED IS REQUIRED. ALL VOICE UNDERSTANDING.
--- NOTE | 2024-01-22 22:59 | NUR ---
NOTED: PT WITHOUT PULSE OR RESPIRATION FOR > 1 MINUTE. TIME OF AT 2215. VERIFIED BY DILIA CASTELLON AND BY DILIA CHANEL. NEETA AVENDAÑO, WAS IN ROOM AT TIME OF .
== END 2024-01-22 22:15 | DRG 871 ==
LOC: ER 05:00 → ERHOLD 08:10 → ICUE 08:10
PROVIDERS: Emergency Medicine; Student in an Organized Health Care Education/Training Program; ADMIT Internal Medicine
PROC: 3E03329 Introduction of Other Anti-infective into Peripheral Vein, Percutaneous Approach (ICD-10-PCS; principal; 2024-01-20)
PROC: 5A09357 Assistance with Respiratory Ventilation, Less than 24 Consecutive Hours, Continuous Positive Airway Pressure (ICD-10-PCS; 2024-01-20)
PROC: 3E033XZ Introduction of Vasopressor into Peripheral Vein, Percutaneous Approach (ICD-10-PCS; 2024-01-20)
PROC: 02HV33Z Insertion of Infusion Device into Superior Vena Cava, Percutaneous Approach (ICD-10-PCS; 2024-01-20)
PROC: B548ZZA Ultrasonography of Superior Vena Cava, Guidance (ICD-10-PCS; 2024-01-20)
PROC: 4A033R1 Measurement of Arterial Saturation, Peripheral, Percutaneous Approach (ICD-10-PCS; 2024-01-20)
PROC: 0T9B70Z Drainage of Bladder with Drainage Device, Via Natural or Artificial Opening (ICD-10-PCS; 2024-01-20)
PROC: 5A0935A Assistance with Respiratory Ventilation, Less than 24 Consecutive Hours, High Flow/Velocity Cannula (ICD-10-PCS; 2024-01-22)
DX: A41.02 Sepsis due to Methicillin resistant Staphylococcus aureus (principal); G92.8 Other toxic encephalopathy; J96.21 Acute and chronic respiratory failure with hypoxia; J96.22 Acute and chronic respiratory failure with hypercapnia; R65.21 Severe sepsis with septic shock; J18.9 Pneumonia, unspecified organism; N17.9 Acute kidney failure, unspecified; J44.0 Chronic obstructive pulmonary disease with (acute) lower respiratory infection; J44.1 Chronic obstructive pulmonary disease with (acute) exacerbation; E87.20 Acidosis, unspecified; E87.29 Other acidosis; Z66 Do not resuscitate; Z51.5 Encounter for palliative care; E11.65 Type 2 diabetes mellitus with hyperglycemia; Z86.16 Personal history of COVID-19; Z99.81 Dependence on supplemental oxygen; I87.2 Venous insufficiency (chronic) (peripheral); M19.90 Unspecified osteoarthritis, unspecified site; Z96.652 Presence of left artificial knee joint; I48.91 Unspecified atrial fibrillation; Z28.21 Immunization not carried out because of patient refusal; Z90.710 Acquired absence of both cervix and uterus; Z90.89 Acquired absence of other organs; Z98.890 Other specified postprocedural states; Z87.891 Personal history of nicotine dependence; Z79.01 Long term (current) use of anticoagulants; Z79.52 Long term (current) use of systemic steroids; Z79.84 Long term (current) use of oral hypoglycemic drugs; Z79.899 Other long term (current) drug therapy; W01.198A Fall on same level from slipping, tripping and stumbling with subsequent striking against other object, initial encounter
CPT/HCPCS: 0241U; 36415; 36569; 36600; 51702; 70450; 71045; 80048; 80053; 82803; 82947; 83036; 83605; 83690; 83880; 85025; 87040; 87147; 87186; 93005; 93010; 93306; 94640; 94644; 94660; 94664; 94762; 96365-59; 96375-59; 99285-25; A9270; C1751; J0282; J0456; J0692; J0696; J1160; J1650; J1815; J1885; J1940; J2270; J2470; J2919; J3370; J7030; J7040; J7050; J7060